=== PATIENT | male | born 1950 | race Caucasian/White ===

== ENCOUNTER 2019-11-20 09:53 | Day surgery (SDC) | payer MEDICARE, OTHER ==
[2019-11-15 10:47] LABS: BASOPHILS # (AUTO) 0.1 X10'3 (0-0.2); BASOPHILS % (AUTO) 0.9 % (0-1); EOSINOPHILS % (AUTO) 0.8 % (0-6); LYMPHOCYTES # (AUTO) 0.8 X10'3 (1.1-4.8); LYMPHOCYTES % (AUTO) 13.8 % (21-51); MEAN CORPUSCULAR HEMOGLOBIN 30.9 PG (27.0-31.0); MEAN CORPUSCULAR VOLUME 88.3 FL (78-98); MEAN PLATELET VOLUME 7.4 FL (7.4-10.4); MONOCYTES # (AUTO) 0.5 X10'3 (0-0.9); MONOCYTES % (AUTO) 9.3 % (2-12); NEUTROPHILS # (AUTO) 4.4 X10'3 (1.8-7.7); NEUTROPHILS % (AUTO) 75.2 % (42-75); PRE OP HEMATOCRIT 44.6 % (42.0-52.0); PRE OP HEMOGLOBIN 15.6 g/dL (14.0-17.9); PRE OP PLATELET COUNT 316 X10'3 (140-440); RED BLOOD COUNT 5.04 X10'6 (4.70-6.10); RED CELL DISTRIBUTION WIDTH 12.9 % (11.5-14.5)
[2019-11-15 10:56] LABS: ALBUMIN 4.2 G/DL (3.4-5.0); ALBUMIN/GLOBULIN RATIO 1.3 (1.1-1.5); ALKALINE PHOSPHATASE 84 IU/L (46-116); BLOOD UREA NITROGEN 11 MG/DL (7-18); BUN/CREATININE RATIO 12.8 (5.4-32.0); CALCIUM 8.9 MG/DL (8.5-10.1); CHLORIDE 101 MMOL/L (99-107); CREATININE 0.86 MG/DL (0.60-1.10); PRE OP ALT 34 U/L (30-65); PRE OP ANION GAP 4 (8-16); PRE OP AST 20 U/L (10-37); PRE OP BILIRUB, TOTAL 0.7 MG/DL (0.0-1.0); PRE OP GLUCOSE 92 MG/DL (70-104); PRE OP POTASSIUM 4.2 MMOL/L (3.4-5.1); PRE OP SODIUM 134 MMOL/L (135-145); TOTAL CARBON DIOXIDE 28.6 MMOL/L (24-32); TOTAL PROTEIN 7.5 G/DL (6.4-8.2); eGFR 89 ML/MIN
[~2019-11-20] VITALS: Ht 182.9 cm; Wt 79.8 kg
[2019-11-20] VITALS (11 sets, daily range): BP systolic 113–144; BP diastolic 45–91
[~2019-11-20 09:53] MED LIST: SIMV5TAB58 PO
[2019-11-20] MEDS ORDERED: famotidine 20mg tablet PO ONE (10:00)
[2019-11-20] MEDS ORDERED: ringers solution, lacted 1,000 ML IV SCH ×2 (10:00→11:10)
[2019-11-20] MEDS ORDERED: ceFAZolin 2gm in dextrose, iso 50 ML IV ONE (10:00)
[2019-11-20] MEDS ORDERED: ceFAZolin 1000mg inj ONE (10:53)
[2019-11-20] MEDS ORDERED: BUPIVAcaine/PF 2.5 mg/ml (0.25%) 30ml vial ONE (10:53)
[2019-11-20] MEDS ORDERED: morphine 2 MG/ML inj. syringe IV PRN (11:10)
[2019-11-20] MEDS ORDERED: morphine 4 MG/ML inj SYRINge IV PRN (11:10)
[2019-11-20] MEDS ORDERED: proCHLORperazine 10 MG/2 ml inj IV PRN (11:10)
[2019-11-20] MEDS ORDERED: meperidine/PF 25mg/ml syringe IV PRN ×3 (11:10)
[2019-11-20] MEDS ORDERED: ondansetron/PF 4mg/2ml inj IV PRN (11:10)
[2019-11-20] MEDS ORDERED: sevoflurane 250ml liquid IH ONE (12:06)
[2019-11-20] MEDS ORDERED: midazolam 2 mg/2 ml injection ONE (12:14)
[2019-11-20] MEDS ORDERED: fentaNYL/PF 50MCG/1 ML 2ML syringe ONE ×2 (12:14→13:14)
[2019-11-20] MEDS ORDERED: dexamethasone sod phosphate 4mg/ml inj. ONE (12:55)
[2019-11-20] MEDS ORDERED: neostigmine methylsulfate 1 MG/ML 10ml vial ONE (12:55)
[2019-11-20] MEDS ORDERED: glycopyrrolate 0.2mg/ml inj ONE (12:55)
[2019-11-20] MEDS ORDERED: ondansetron/PF 4mg/2ml inj ONE (12:55)
[2019-11-20] MEDS ORDERED: rocuronium 10mg/ml inj IV ONE (12:55)
[2019-11-20] MEDS ORDERED: LIDOcaine 2% (20mg/ml) 5ml vial ONE (12:55)
[2019-11-20] MEDS ORDERED: propofol inj 20 ML IV ONE (12:55)
[2019-11-20] MEDS ORDERED: ePHEDrine 50MG/ML INJ. ONE (13:14)
--- NOTE | 2019-11-20 13:15 | NUR ---
Received from OR via atul, accompanied by Anesthesiologist Marcela and report given by Anesthesiolgist. VS WNL mask to 10L and sats 100%. Pt abdomen soft and has two large bandaids CDI. Pt responsive to questions but very sleepy. No carrillo cath, 20G right IV present to forearm LR IVF at 100cc/hr.
--- NOTE | 2019-11-20 14:45 | NUR ---
Pt ambulated, tolerated lots of fluids, voided and ate without issue.
--- NOTE | 2019-11-20 15:05 | NUR ---
Pt discharged to vehicle without incident, by wheelchair. Dressings remain CDI. Pt and sister state they understand all DC information. IV dc'd, patient knows to follow up at MD office, and already has orders waiting at pharmacy for his pain script. All questions answered, all belongings returned to the patient.
== END 2019-11-20 15:05 | disposition home or self-care (01) ==
LOC: PAS 09:53
PROVIDERS: ATTEND Surgery
DX: K40.90 Unilateral inguinal hernia, without obstruction or gangrene, not specified as recurrent (principal); G30.9 Alzheimer's disease, unspecified; F02.80 Dementia in other diseases classified elsewhere, unspecified severity, without behavioral disturbance, psychotic disturbance, mood disturbance, and anxiety; E78.5 Hyperlipidemia, unspecified; Z72.89 Other problems related to lifestyle; Z87.891 Personal history of nicotine dependence; Z98.890 Other specified postprocedural states; Z79.899 Other long term (current) drug therapy; Z80.0 Family history of malignant neoplasm of digestive organs
CPT/HCPCS: 36415; 49650; 80053; 82948; 85025; 93005; J0690; J1100; J2001; J2175; J2250; J2405; J2704; J2710; J3010; J3490; A4215; A4314; A4618; A6258; C1781; J7120